=== PATIENT | female | born 1965 | race Two or more races ===

== ENCOUNTER 2017-04-14 14:32 | Inpatient (IN) | payer MEDICAID, OTHER ==
[~2017-04-14] VITALS: Ht 160 cm; Wt 144.5 kg
[2017-04-14] MEDS ORDERED: DEXTROSE 50% SYRINGE 50 ML IV ONE (14:50)
[2017-04-14] MEDS ORDERED: D5W/SOD CHLO 0.9% 1,000 ML IV ONE ×2 (15:00→16:45)
[2017-04-14] MEDS ORDERED: DEXTROSE (50%) 50ML SYRG IV ONE (15:15)
[2017-04-14 15:18] LABS: Basophils # (auto) 0 uL; Basophils % (auto) 0.4 % (0.0-2.0); CONDITION Y; Eosinophils # (auto) 0.1 uL; Eosinophils % (auto) 1.7 % (0.0-7.0); Hemoglobin 9.5 g/dL (12.2-16.2); Lymphocytes # (auto) 0.7 uL; Lymphocytes % (auto) 12.3 % (10.0-50.0); Mean Corpuscular Hemoglobin 31.2 pg (28.0-32.0); Mean Corpuscular Hgb Conc. 34.1 g/dL (32.0-36.0); Mean Corpuscular Volume 91.5 fL (80.0-100.0); Mean Platelet Volume 9.9 fL (7.4-10.4); Monocytes # (auto) 0.2 uL; Monocytes % (auto) 3.7 % (0.0-12.0); Neutrophils # (auto) 4.5 uL; Neutrophils % (auto) 81.9 % (37.0-80.0); Platelet Count (auto) 192 10^3/uL (140-450); Red Cell Distribution Width 13.4 % (11.6-16.0); White Blood Cell 5.5 10^3/uL (4.4-10.8)
[2017-04-14 15:34] LABS: INR 0.98 (0.9-1.15); Partial Thromboplastin Time 27.8 sec (22.64-33.71); Prothrombin Time 10.7 sec (9.37-12.3)
[2017-04-14 15:50] LABS: Albumin 1.9 g/dL (3.4-5.0); Anion Gap 12 (5-15); Aspartate Aminotransferase 16 U/L (15-37); BUN/Creatinine Ratio 6.3; Blood Urea Nitrogen 59 mg/dL (7-18); Calcium 7.1 mg/dL (8.5-10.1); Carbon Dioxide 18 mmol/L (21-32); Chloride 114 mmol/L (98-107); GFR African American 6 mL/min; GFR Non-African American 5 mL/min; Glucose 160 mg/dL (74-106); Magnesium 2.4 mg/dL (1.6-2.6); Potassium 3.8 mmol/L (3.5-5.1); Sodium 144 mmol/L (136-145)
[2017-04-14 15:53] LABS: Alkaline Phosphatase 112 U/L (45-117); Bilirubin, Total 0.2 mg/dL (0.2-1.0); Total Protein 5.5 g/dL (6.4-8.2)
[2017-04-14] MEDS ORDERED: NITROGLYCERIN 0.4 MG SL TAB SL PRN (16:30)
[2017-04-14] MEDS ORDERED: ACETAMINOPHEN 325 MG TAB PO PRN (16:30)
[2017-04-14] MEDS ORDERED: ONDANSETRON HCL 4 MG/2 ML VIAL IV PRN (16:30)
[2017-04-14] MEDS ORDERED: MORPHINE SULF INJ 2 MG/ML SYRINGE 1ML IV PRN ×2 (16:30)
[2017-04-14] MEDS ORDERED: TEMAZEPAM 15 MG CAP PO PRN (16:30)
[2017-04-14] MEDS ORDERED: DOCUSATE SOD 100 MG CAP PO PRN (16:30)
[2017-04-14] MEDS ORDERED: DEXTROSE (50%) 50ML SYRG IV PRN (16:45)
[2017-04-14] MEDS: Boost Glucose Control 8 Ounces PO SCH ×2 (18:35→22:06)
[2017-04-14] MEDS: cloNIDine HCL 0.1 MG TAB PO PRN ×2 (20:11→22:28)
[2017-04-14] MEDS: ATORVASTATIN 20 MG TAB PO SCH (22:28)
[2017-04-14] MEDS: AMOXICILLIN TRIHYDRATE 250 MG CAP PO SCH (22:28)
[2017-04-15] MEDS: cloNIDine HCL 0.1 MG TAB PO PRN ×3 (01:11→06:32)
[2017-04-15 03:56] LABS: Urine Bilirubin Negative (Negative); Urine Blood 1+ /uL (Negative); Urine Color Yellow (Yellow); Urine Glucose 3+ mg/dL (Normal); Urine Ketone Negative (Negative); Urine Mucus FEW (None Seen); Urine Nitrite Negative (Negative); Urine RBC 7 /hpf (0 - 4); Urine Squamous Epithelial Cell FEW /hpf (<5); Urine Urobilinogen Normal (Negative)
[2017-04-15] MEDS: AMOXICILLIN TRIHYDRATE 250 MG CAP PO SCH ×3 (06:00→22:20)
[2017-04-15] MEDS: Boost Glucose Control 8 Ounces PO SCH ×4 (06:16→22:00)
[2017-04-15 07:16] LABS: Basophils # (auto) 0 uL; Basophils % (auto) 0.7 % (0.0-2.0); CONDITION Y; Eosinophils # (auto) 0.2 uL; Eosinophils % (auto) 3.6 % (0.0-7.0); Hematocrit 26.8 % (36.0-46.0); Hemoglobin 8.9 g/dL (12.2-16.2); Lymphocytes # (auto) 1.1 uL; Lymphocytes % (auto) 18.8 % (10.0-50.0); Mean Corpuscular Hemoglobin 30.7 pg (28.0-32.0); Mean Corpuscular Hgb Conc. 33.4 g/dL (32.0-36.0); Mean Corpuscular Volume 91.8 fL (80.0-100.0); Mean Platelet Volume 10.5 fL (7.4-10.4); Monocytes # (auto) 0.3 uL; Monocytes % (auto) 4.6 % (0.0-12.0); Neutrophils # (auto) 4.2 uL; Neutrophils % (auto) 72.3 % (37.0-80.0); Platelet Count (auto) 162 10^3/uL (140-450); Red Cell Distribution Width 13.6 % (11.6-16.0); White Blood Cell 5.8 10^3/uL (4.4-10.8)
[2017-04-15 07:30] LABS: Albumin 1.7 g/dL (3.4-5.0); Calcium 7.2 mg/dL (8.5-10.1); Potassium 5.5 mmol/L (3.5-5.1)
[2017-04-15 07:32] LABS: BUN/Creatinine Ratio 6.4
[2017-04-15 07:34] LABS: Bilirubin, Total 0.2 mg/dL (0.2-1.0); Total Protein 5.1 g/dL (6.4-8.2)
[2017-04-15] MEDS ORDERED: SODIUM BICARBONATE 8.4 % INJ 50ML VIAL IV ONE (10:15)
[2017-04-15] MEDS ORDERED: InsuLIN REG 1unit/0.01ml Soln (100units/ml) IV ONE (10:15)
[2017-04-15] MEDS ORDERED: DEXTROSE (50%) 50ML SYRG IV ONE (10:15)
[2017-04-15] MEDS ORDERED: ALBUTEROL SULF 2.5 MG/0.5ML(0.5%) NEB SOLN NEB ONE (10:15)
[2017-04-15] MEDS: MULTIPLE VITAMIN TAB PO SCH (10:32)
[2017-04-15] MEDS ORDERED: METOPROLOL TARTRATE 50 MG TAB PO ONE (11:00)
[2017-04-15] MEDS ORDERED: NIFEdipine ER 30 MG TAB PO ONE (11:00)
[2017-04-15] MEDS ORDERED: EPOETIN ALFA 10,000 UNIT/1 ML VIAL IV ONE (11:00)
[2017-04-15 16:27] VITALS: BP 141/92
[2017-04-15 17:58] VITALS: BP 118/71
[2017-04-15 20:00] VITALS: BP 122/56
[2017-04-15 21:48] VITALS: BP 122/56
[2017-04-15] MEDS: METOPROLOL TARTRATE 50 MG TAB PO SCH (22:15)
[2017-04-15] MEDS: ATORVASTATIN 20 MG TAB PO SCH (22:20)
[2017-04-16] VITALS (7 sets, daily range): BP systolic 129–164; BP diastolic 61–79
[2017-04-16] MEDS: AMOXICILLIN TRIHYDRATE 250 MG CAP PO SCH ×3 (05:28→22:12)
[2017-04-16] MEDS ORDERED: SODIUM CHL 0.9% 1000 ML BAG XX ONE (06:00)
[2017-04-16 06:16] LABS: Basophils # (auto) 0 uL; Basophils % (auto) 0.7 % (0.0-2.0); CONDITION Y; Eosinophils # (auto) 0.3 uL; Eosinophils % (auto) 4.7 % (0.0-7.0); Hemoglobin 9.2 g/dL (12.2-16.2); Lymphocytes # (auto) 1.6 uL; Lymphocytes % (auto) 23.9 % (10.0-50.0); Mean Corpuscular Hemoglobin 30.9 pg (28.0-32.0); Mean Platelet Volume 10.6 fL (7.4-10.4); Monocytes # (auto) 0.3 uL; Monocytes % (auto) 4.4 % (0.0-12.0); Neutrophils # (auto) 4.4 uL; Neutrophils % (auto) 66.3 % (37.0-80.0); Platelet Count (auto) 201 10^3/uL (140-450); Red Cell Distribution Width 13.4 % (11.6-16.0); White Blood Cell 6.7 10^3/uL (4.4-10.8)
[2017-04-16] MEDS: Boost Glucose Control 8 Ounces PO SCH ×4 (06:29→22:12)
[2017-04-16 06:44] LABS: Albumin 1.8 g/dL (3.4-5.0); BUN/Creatinine Ratio 6.9; Bilirubin, Total 0.2 mg/dL (0.2-1.0); Calcium 7.2 mg/dL (8.5-10.1); Total Protein 5.5 g/dL (6.4-8.2)
[2017-04-16] MEDS ORDERED: EPOETIN ALFA 10,000 UNIT/1 ML VIAL IV ONE (08:00)
[2017-04-16] MEDS: MULTIPLE VITAMIN TAB PO SCH (11:31)
[2017-04-16] MEDS: METOPROLOL TARTRATE 50 MG TAB PO SCH ×2 (11:31→22:13)
[2017-04-16] MEDS: NIFEdipine ER 30 MG TAB PO SCH (11:31)
[2017-04-16] MEDS: CALCIUM ACETATE 667 MG CAP PO SCH ×2 (12:00→18:10)
[2017-04-16] MEDS ORDERED: ceFAZolin 1GM/50ML D5W 50 ML IV ONE (13:25)
[2017-04-16] MEDS ORDERED: ceFAZolin 1GM VL ONE (13:30)
[2017-04-16] MEDS ORDERED: HEPARIN 1,000 UNITS/ml 1ML VIAL ONE (13:30)
[2017-04-16] MEDS ORDERED: HEPARIN SODIUM (PORCINE) 5000 UNITS/ML 1ML VIAL ONE (13:31)
[2017-04-16] MEDS ORDERED: LIDOCAINE 1% HCL (LOCAL ANESTH.) INJ 20ML MDV ONE (13:32)
[2017-04-16] MEDS ORDERED: MIDAZOLAM HCL 1MG/1ML-2 ML VIAL ONE (13:37)
[2017-04-16] MEDS ORDERED: fentaNYL CITRATE 100 MCG/2 ML VL ONE (13:37)
[2017-04-16] MEDS ORDERED: METOCLOPRAMIDE HCL 5MG/ml INJ 2ml VIAL ONE (13:47)
[2017-04-16] MEDS ORDERED: PROPOFOL 10 MG/ML 20 ML IV ONE (14:11)
[2017-04-16] MEDS: HYDROcodone-ACET 5/325MG TAB PO PRN (16:19)
[2017-04-16] MEDS: ATORVASTATIN 20 MG TAB PO SCH (22:12)
[2017-04-17] VITALS (7 sets, daily range): BP systolic 147–171; BP diastolic 66–82
[2017-04-17] MEDS: AMOXICILLIN TRIHYDRATE 250 MG CAP PO SCH ×3 (05:09→21:47)
[2017-04-17] MEDS: Boost Glucose Control 8 Ounces PO SCH ×4 (05:09→21:49)
[2017-04-17 05:49] LABS: Basophils # (auto) 0.1 uL; Basophils % (auto) 0.6 % (0.0-2.0); CONDITION Y; Eosinophils # (auto) 0.2 uL; Eosinophils % (auto) 2.9 % (0.0-7.0); Hematocrit 31.1 % (36.0-46.0); Hemoglobin 10.6 g/dL (12.2-16.2); Lymphocytes # (auto) 1.2 uL; Lymphocytes % (auto) 14.1 % (10.0-50.0); Mean Corpuscular Hemoglobin 30.9 pg (28.0-32.0); Mean Corpuscular Hgb Conc. 33.9 g/dL (32.0-36.0); Mean Platelet Volume 9.4 fL (7.4-10.4); Monocytes # (auto) 0.3 uL; Monocytes % (auto) 3.5 % (0.0-12.0); Neutrophils # (auto) 6.5 uL; Neutrophils % (auto) 78.9 % (37.0-80.0); Platelet Count (auto) 266 10^3/uL (140-450); Red Cell Distribution Width 13.6 % (11.6-16.0); White Blood Cell 8.2 10^3/uL (4.4-10.8)
[2017-04-17 06:09] LABS: BUN/Creatinine Ratio 6.9; Calcium 7.7 mg/dL (8.5-10.1); Potassium 4.8 mmol/L (3.5-5.1)
[2017-04-17] MEDS: CALCIUM ACETATE 667 MG CAP PO SCH ×3 (08:24→16:59)
[2017-04-17] MEDS: MULTIPLE VITAMIN TAB PO SCH (08:24)
[2017-04-17 09:25] LABS: Hepatitis B Surface Antibody Negative
[2017-04-17] MEDS: METOPROLOL TARTRATE 50 MG TAB PO SCH ×2 (10:00→21:49)
[2017-04-17] MEDS ORDERED: EPOETIN ALFA 10,000 UNIT/1 ML VIAL IV ONE ×2 (10:00→10:15)
[2017-04-17] MEDS: NIFEdipine ER 30 MG TAB PO SCH (10:00)
[2017-04-17] MEDS: cloNIDine HCL 0.1 MG TAB PO PRN ×2 (12:29→16:59)
[2017-04-17] MEDS: ATORVASTATIN 20 MG TAB PO SCH (21:48)
[2017-04-18 05:00] VITALS: BP 96/79
[2017-04-18] MEDS: AMOXICILLIN TRIHYDRATE 250 MG CAP PO SCH ×3 (05:22→21:46)
[2017-04-18] MEDS: Boost Glucose Control 8 Ounces PO SCH ×4 (05:23→21:46)
[2017-04-18 05:53] LABS: BUN/Creatinine Ratio 5.8; Calcium 8.1 mg/dL (8.5-10.1); Phosphorus 4.2 mg/dL (2.5-4.90); Potassium 3.8 mmol/L (3.5-5.1)
[2017-04-18 08:00] VITALS: BP 159/85
[2017-04-18] MEDS ORDERED: SODIUM CHL 0.9% 1000 ML BAG XX ONE ×2 (08:00→10:00)
[2017-04-18] MEDS: CALCIUM ACETATE 667 MG CAP PO SCH ×3 (08:20→18:23)
[2017-04-18] MEDS ORDERED: ERGOCALCIFEROL 50,000 UNIT(1.25MG) CAP PO SCH (09:30)
[2017-04-18 09:33] VITALS: BP 159/85
[2017-04-18] MEDS: METOPROLOL TARTRATE 50 MG TAB PO SCH ×2 (09:48→21:47)
[2017-04-18] MEDS: NIFEdipine ER 30 MG TAB PO SCH (09:49)
[2017-04-18] MEDS: MULTIPLE VITAMIN TAB PO SCH (09:49)
[2017-04-18 13:00] VITALS: BP 178/91
[2017-04-18] MEDS: cloNIDine HCL 0.1 MG TAB PO PRN (13:27)
[2017-04-18 17:05] VITALS: BP 133/91
[2017-04-18] MEDS ORDERED: CATHFLO ACTIVASE (ALTEPLASE) 2 MG VIAL IV ONE ×2 (18:00→18:30)
[2017-04-18 21:30] VITALS: BP 144/73
[2017-04-18] MEDS: ATORVASTATIN 20 MG TAB PO SCH (21:46)
[2017-04-19 05:00] VITALS: BP 154/68
[2017-04-19] MEDS: AMOXICILLIN TRIHYDRATE 250 MG CAP PO SCH ×3 (06:24→22:02)
[2017-04-19] MEDS: Boost Glucose Control 8 Ounces PO SCH ×4 (06:25→22:00)
[2017-04-19 08:00] VITALS: BP 130/66
[2017-04-19] MEDS: CALCIUM ACETATE 667 MG CAP PO SCH ×3 (08:06→17:04)
[2017-04-19] MEDS: NIFEdipine ER 30 MG TAB PO SCH (09:08)
[2017-04-19] MEDS: MULTIPLE VITAMIN TAB PO SCH (09:08)
[2017-04-19] MEDS: METOPROLOL TARTRATE 50 MG TAB PO SCH ×2 (09:09→22:00)
[2017-04-19] MEDS: HYDROcodone-ACET 5/325MG TAB PO PRN (09:09)
[2017-04-19 09:42] VITALS: BP 130/66
[2017-04-19 14:19] VITALS: BP 141/77
[2017-04-19 17:29] VITALS: BP 121/61
[2017-04-19 21:30] VITALS: BP 145/68
[2017-04-19] MEDS: ATORVASTATIN 20 MG TAB PO SCH (22:00)
[2017-04-20 05:00] VITALS: BP 143/75
[2017-04-20] MEDS: Boost Glucose Control 8 Ounces PO SCH ×2 (06:00→11:45)
[2017-04-20] MEDS: AMOXICILLIN TRIHYDRATE 250 MG CAP PO SCH ×2 (06:03→14:00)
[2017-04-20] MEDS: CALCIUM ACETATE 667 MG CAP PO SCH ×2 (08:00→11:48)
[2017-04-20 09:00] VITALS: BP 132/71
[2017-04-20 09:35] VITALS: BP 132/71
[2017-04-20] MEDS: NIFEdipine ER 30 MG TAB PO SCH (10:00)
[2017-04-20] MEDS: MULTIPLE VITAMIN TAB PO SCH (10:00)
[2017-04-20] MEDS: METOPROLOL TARTRATE 50 MG TAB PO SCH (10:00)
[2017-04-20 13:18] VITALS: BP 130/74
== END 2017-04-20 15:00 | disposition home or self-care (01) | DRG 420 ==
LOC: ER 14:34 → TELE 14:35 → TELE-E-ADS 04-15 15:40 → TELE-CENTR 04-15 17:42
PROVIDERS: ADMIT Internal Medicine; ATTEND Internal Medicine
PROC: 05H633Z Insertion of Infusion Device into Left Subclavian Vein, Percutaneous Approach (ICD-10-PCS; principal; 2017-04-16 13:45)
PROC: 5A1D60Z (ICD-10-PCS; 2017-04-17)
DX: E11.649 Type 2 diabetes mellitus with hypoglycemia without coma (principal); E43 Unspecified severe protein-calorie malnutrition; G93.41 Metabolic encephalopathy; N17.9 Acute kidney failure, unspecified; I12.0 Hypertensive chronic kidney disease with stage 5 chronic kidney disease or end stage renal disease; E87.2 Acidosis; E11.21 Type 2 diabetes mellitus with diabetic nephropathy; G40.909 Epilepsy, unspecified, not intractable, without status epilepticus; E11.22 Type 2 diabetes mellitus with diabetic chronic kidney disease; E83.51 Hypocalcemia; E87.5 Hyperkalemia; Z83.3 Family history of diabetes mellitus; E78.5 Hyperlipidemia, unspecified; D63.1 Anemia in chronic kidney disease; N18.6 End stage renal disease; Z99.2 Dependence on renal dialysis; Z68.43 Body mass index [BMI] 50.0-59.9, adult
CPT/HCPCS: 36415; 71010; 80048; 80053; 80307; 80320; 81001; 82306; 82962; 83036; 83735; 84100; 84443; 85025; 85610; 85730; 86706; 86803; 87086; 87340; 90935; 93005; 96365; 96366; 96375; 97163; J0690; J0885; J1642; J1815; J2001; J2250; J2704; J7042

== ENCOUNTER 2017-09-29 17:49 | Inpatient (IN) | payer MEDICAID, OTHER ==
[~2017-09-29] VITALS: Ht 160 cm; Wt 56.6 kg
[~2017-09-29 17:49] MED LIST: ATOR1TAB PO; B-CO-5 PO; HYDR-4683 PO; LOSA50TA6 PO
[2017-09-29] MEDS ORDERED: CLINDAMYCIN 600MG IV 50 ML IV ONE (19:45)
[2017-09-29 20:04] LABS: Basophils # (auto) 0 uL; Basophils % (auto) 1.2 % (0.0-2.0); Eosinophils # (auto) 0.1 uL; Hematocrit 33.1 % (36.0-46.0); Hemoglobin 11.4 g/dL (12.2-16.2); Lymphocytes # (auto) 0.8 uL; Lymphocytes % (auto) 25.5 % (10.0-50.0); Mean Corpuscular Hgb Conc. 34.6 g/dL (32.0-36.0); Mean Corpuscular Volume 92.6 fL (80.0-100.0); Monocytes # (auto) 0.2 uL; Monocytes % (auto) 5.4 % (0.0-12.0); Neutrophils # (auto) 2.2 uL; Neutrophils % (auto) 64.9 % (37.0-80.0); Nucleated Red Blood Cells % 0.1 %; Platelet Count (auto) 145 10^3/uL (140-450); Red Blood Cells 3.57 10^6/uL (4.0-5.20); Red Cell Distribution Width 13.2 % (11.8-14.3); White Blood Cell 3.3 10^3/uL (4.4-10.8)
[2017-09-29 20:22] LABS: Albumin 3.4 g/dL (3.4-5.0); BUN/Creatinine Ratio 4.5; Bilirubin, Total 0.4 mg/dL (0.2-1.0); Calcium 7.3 mg/dL (8.5-10.1); Magnesium 2.6 mg/dL (1.6-2.6); Potassium 3.8 mmol/L (3.5-5.1); Total Protein 7.3 g/dL (6.4-8.2)
[2017-09-29] MEDS ORDERED: ONDA-101 PO (21:26)
[2017-09-29] MEDS ORDERED: AMLO5TAB2 PO (21:26)
[2017-09-29] MEDS ORDERED: FERR1TAB17 PO (21:26)
[2017-09-29] MEDS ORDERED: CHOLCAP4 PO (21:26)
[2017-09-29] MEDS ORDERED: CLON0.1T PO (21:26)
[2017-09-29] MEDS ORDERED: cloNIDine HCL 0.1 MG TAB PO ONE (21:30)
[2017-09-29] MEDS ORDERED: DEXTROSE (50%) 50ML SYRG IV PRN (21:30)
[2017-09-29] MEDS ORDERED: TEMAZEPAM 15 MG CAP PO PRN (21:30)
[2017-09-29] MEDS ORDERED: ACETAMINOPHEN 500 MG TAB PO PRN (21:30)
[2017-09-29] MEDS ORDERED: ONDANSETRON HCL 4 MG/2 ML VIAL IV PRN (21:30)
[2017-09-29] MEDS ORDERED: VANCOMYCIN PER PHARMACY 0 MG IV SCH (21:45)
[2017-09-29] MEDS: ACCU-CHEK COMFORT CURVE STRIP VI SCH (22:00)
[2017-09-29 23:00] VITALS: BP 168/96
[2017-09-29] MEDS ORDERED: VANCOMYCIN 500 MG in D5W 5% 100 ML IV ONE (23:00)
[2017-09-29] MEDS: ATORVASTATIN 20 MG TAB PO SCH (23:29)
[2017-09-29] MEDS: amLODIPine BESYLATE 5 MG TAB PO SCH (23:30)
[2017-09-29 23:45] VITALS: BP 168/96
[2017-09-30] VITALS (7 sets, daily range): BP systolic 144–178; BP diastolic 65–102
[2017-09-30] MEDS: InsuLIN REG 1unit/0.01ml Soln (100units/ml) SC SCH ×5 (00:05→22:02)
[2017-09-30] MEDS: ACCU-CHEK COMFORT CURVE STRIP VI SCH ×4 (06:16→21:58)
[2017-09-30 08:18] LABS: Basophils # (auto) 0 uL; Basophils % (auto) 0.8 % (0.0-2.0); Eosinophils # (auto) 0.1 uL; Eosinophils % (auto) 1.9 % (0.0-7.0); Hematocrit 32.9 % (36.0-46.0); Hemoglobin 11.3 g/dL (12.2-16.2); Lymphocytes # (auto) 0.9 uL; Lymphocytes % (auto) 16.5 % (10.0-50.0); Mean Corpuscular Hemoglobin 31.3 pg (28.0-32.0); Mean Corpuscular Hgb Conc. 34.2 g/dL (32.0-36.0); Mean Corpuscular Volume 91.7 fL (80.0-100.0); Monocytes # (auto) 0.3 uL; Monocytes % (auto) 5.4 % (0.0-12.0); Neutrophils # (auto) 4.2 uL; Neutrophils % (auto) 75.4 % (37.0-80.0); Platelet Count (auto) 132 10^3/uL (140-450); Red Blood Cells 3.59 10^6/uL (4.0-5.20); Red Cell Distribution Width 12.8 % (11.8-14.3); White Blood Cell 5.6 10^3/uL (4.4-10.8)
[2017-09-30 08:35] LABS: BUN/Creatinine Ratio 4.9; Calcium 7.8 mg/dL (8.5-10.1); Potassium 4.2 mmol/L (3.5-5.1)
[2017-09-30] MEDS ORDERED: VANCOMYCIN 1GM/250ML 250 ML IV ONE (10:00)
[2017-09-30] MEDS: ASPirin 81 mg TAB PO SCH (10:34)
[2017-09-30] MEDS: LOSARTAN POTASSIUM 50 MG TAB PO SCH (10:36)
[2017-09-30] MEDS: cloNIDine HCL 0.1 MG TAB PO PRN (18:57)
[2017-09-30] MEDS: ATORVASTATIN 20 MG TAB PO SCH (21:51)
[2017-09-30] MEDS: amLODIPine BESYLATE 5 MG TAB PO SCH (21:53)
[2017-10-01] VITALS (7 sets, daily range): BP systolic 109–180; BP diastolic 53–86
[2017-10-01] MEDS: ACCU-CHEK COMFORT CURVE STRIP VI SCH ×4 (06:12→22:20)
[2017-10-01] MEDS: InsuLIN REG 1unit/0.01ml Soln (100units/ml) SC SCH ×4 (06:13→22:20)
[2017-10-01 06:59] LABS: Calcium 7.8 mg/dL (8.5-10.1); Potassium 5.1 mmol/L (3.5-5.1)
[2017-10-01] MEDS: ASPirin 81 mg TAB PO SCH (09:16)
[2017-10-01] MEDS: LOSARTAN POTASSIUM 50 MG TAB PO SCH (11:23)
[2017-10-01] MEDS ORDERED: cefTRIAXone 1GM/10ml IVPUSH 10 ML IV ONE (13:15)
[2017-10-01] MEDS: ATORVASTATIN 20 MG TAB PO SCH (21:58)
[2017-10-01] MEDS: amLODIPine BESYLATE 5 MG TAB PO SCH (21:59)
[2017-10-01] MEDS: cloNIDine HCL 0.1 MG TAB PO PRN (21:59)
[2017-10-02] VITALS (7 sets, daily range): BP systolic 109–151; BP diastolic 59–79
[2017-10-02] MEDS: InsuLIN REG 1unit/0.01ml Soln (100units/ml) SC SCH ×4 (06:14→22:12)
[2017-10-02] MEDS: ACCU-CHEK COMFORT CURVE STRIP VI SCH ×4 (06:14→22:12)
[2017-10-02 07:20] LABS: Albumin 3.3 g/dL (3.4-5.0); BUN/Creatinine Ratio 7.2; Bilirubin, Total 0.4 mg/dL (0.2-1.0); Calcium 8.3 mg/dL (8.5-10.1)
[2017-10-02 07:32] LABS: Basophils # (auto) 0.1 uL; Basophils % (auto) 1.1 % (0.0-2.0); Eosinophils # (auto) 0.1 uL; Eosinophils % (auto) 2.9 % (0.0-7.0); Hematocrit 30.7 % (36.0-46.0); Hemoglobin 10.4 g/dL (12.2-16.2); Lymphocytes # (auto) 1.6 uL; Lymphocytes % (auto) 34.3 % (10.0-50.0); Mean Corpuscular Hemoglobin 31.3 pg (28.0-32.0); Mean Corpuscular Hgb Conc. 33.9 g/dL (32.0-36.0); Mean Corpuscular Volume 92.4 fL (80.0-100.0); Monocytes # (auto) 0.4 uL; Monocytes % (auto) 7.6 % (0.0-12.0); Neutrophils # (auto) 2.6 uL; Neutrophils % (auto) 54.1 % (37.0-80.0); Nucleated Red Blood Cells % 0.5 %; Platelet Count (auto) 158 10^3/uL (140-450); Red Blood Cells 3.32 10^6/uL (4.0-5.20); Red Cell Distribution Width 12.9 % (11.8-14.3); White Blood Cell 4.7 10^3/uL (4.4-10.8)
[2017-10-02] MEDS ORDERED: cefTRIAXone 1GM/10ml IVPUSH 10 ML IV SCH (09:00)
[2017-10-02] MEDS: LOSARTAN POTASSIUM 50 MG TAB PO SCH (09:01)
[2017-10-02] MEDS: ASPirin 81 mg TAB PO SCH (09:26)
[2017-10-02] MEDS: B-COMPLEX W/ C & FOLIC ACID(NEPHROVITE TAB) PO SCH (09:31)
[2017-10-02] MEDS: ASCORBIC ACID 500 MG TAB PO SCH ×2 (09:32→22:11)
[2017-10-02 10:07] LABS: INR 0.98 (0.9-1.15); Partial Thromboplastin Time 26.4 sec (22.64-33.71); Prothrombin Time 10.7 sec (9.37-12.3)
[2017-10-02 17:39] LABS: Urine Bacteria NONE SEEN /hpf (None Seen); Urine Blood TRACE /uL (Negative); Urine Mucus FEW (None Seen); Urine Specific Gravity 1.015 (1.001-1.035); Urine WBC 4 /hpf (0 - 5)
[2017-10-02] MEDS ORDERED: SODIUM POLYSTYRENE SULF 15GM/60ML SUSP PO ONE (18:15)
[2017-10-02] MEDS: amLODIPine BESYLATE 5 MG TAB PO SCH (22:11)
[2017-10-02] MEDS: ATORVASTATIN 20 MG TAB PO SCH (22:11)
[2017-10-03] MEDS ORDERED: KETOROLAC TROMETH 30 MG/ML 1ML VIAL IV ONE ×2 (03:15→07:45)
[2017-10-03 05:00] VITALS: BP 98/48
[2017-10-03] MEDS: ACCU-CHEK COMFORT CURVE STRIP VI SCH ×4 (06:41→22:21)
[2017-10-03] MEDS: InsuLIN REG 1unit/0.01ml Soln (100units/ml) SC SCH ×4 (06:41→22:00)
[2017-10-03] MEDS ORDERED: ceFAZolin 1GM/50ML 50 ML IV ONE (06:47)
[2017-10-03] MEDS ORDERED: LIDOCAINE 1% HCL (LOCAL ANESTH.) INJ 20ML MDV ONE (06:52)
[2017-10-03] MEDS ORDERED: BUPIVACAINE 0.25% INJ 50ML VIAL ONE (06:52)
[2017-10-03] MEDS ORDERED: fentaNYL CITRATE 100 MCG/2 ML VL ONE (07:12)
[2017-10-03] MEDS ORDERED: MIDAZOLAM HCL 1MG/1ML-2 ML VIAL ONE (07:13)
[2017-10-03] MEDS ORDERED: MEPERIDINE HCL (50 MG/ML) 1 ML VIAL ONE (07:13)
[2017-10-03] MEDS ORDERED: PROPOFOL 10 MG/ML 20 ML IV ONE (07:28)
[2017-10-03] MEDS ORDERED: DEXAMETHASONE SOD PHOS 10MG/1ML VIAL INJ ONE (07:28)
[2017-10-03 07:45] LABS: BUN/Creatinine Ratio 8.1; Calcium 7.8 mg/dL (8.5-10.1)
[2017-10-03] MEDS ORDERED: LABETALOL HCL 5 MG/ML 4ML SYRINGE IV PRN (07:45)
[2017-10-03] MEDS ORDERED: HYDROmorphone HCL 2 MG/ML VL IV PRN (07:45)
[2017-10-03] MEDS ORDERED: ONDANSETRON HCL 4 MG/2 ML VIAL IV ONE (07:45)
[2017-10-03] MEDS ORDERED: MORPHINE SULFATE 4 MG/ML SYR/VIAL IV PRN (07:45)
[2017-10-03] MEDS ORDERED: ACCU-CHEK COMFORT CURVE STRIP VI ONE (07:45)
[2017-10-03] MEDS ORDERED: MIDAZOLAM HCL 1MG/1ML-2 ML VIAL IV PRN (07:45)
[2017-10-03] MEDS ORDERED: ePHEDrine SULFATE 50 MG/ML AMP IV PRN (07:45)
[2017-10-03 07:50] LABS: Potassium 5.9 mmol/L (3.5-5.1)
[2017-10-03] MEDS ORDERED: MORPHINE SULFATE 4 MG/ML SYR/VIAL IV ONE (08:00)
[2017-10-03] MEDS ORDERED: ceFAZolin 1GM/50ML 50 ML IV SCH ×2 (08:15→13:00)
[2017-10-03 09:00] VITALS: BP 117/62
[2017-10-03] MEDS: LACTATED RINGER'S 1,000 ML IV SCH (11:00)
[2017-10-03] MEDS: ASPirin 81 mg TAB PO SCH (12:17)
[2017-10-03] MEDS: B-COMPLEX W/ C & FOLIC ACID(NEPHROVITE TAB) PO SCH (12:17)
[2017-10-03] MEDS: ASCORBIC ACID 500 MG TAB PO SCH ×2 (12:17→22:12)
[2017-10-03 13:00] VITALS: BP 139/60
[2017-10-03] MEDS: FLORASTOR (S. BOULARDII) 250 MG CAP PO SCH (15:26)
[2017-10-03] MEDS: CLINDAMYCIN 300MG IV 50 ML IV SCH ×2 (16:30→22:11)
[2017-10-03 17:00] VITALS: BP 140/61
[2017-10-03] MEDS ORDERED: VANCOMYCIN 500 MG in D5W 5% 100 ML IV ONE (17:00)
[2017-10-03] MEDS: LOSARTAN POTASSIUM 50 MG TAB PO SCH (18:04)
[2017-10-03 20:00] VITALS: BP 143/84
[2017-10-03] MEDS: ceFAZolin 1GM/50ML 50 ML IV SCH (21:22)
[2017-10-03] MEDS: ATORVASTATIN 20 MG TAB PO SCH (22:11)
[2017-10-03] MEDS: amLODIPine BESYLATE 5 MG TAB PO SCH (22:12)
[2017-10-03 22:36] VITALS: BP 143/84
[2017-10-03] MEDS: PROMETHAZINE HCL 25 MG/ML 1ML IV PRN (22:54)
[2017-10-03] MEDS: HYDROcodone-ACET 5/325MG TAB PO PRN (23:50)
[2017-10-04] MEDS: LACTATED RINGER'S 1,000 ML IV SCH ×2 (00:41→18:08)
[2017-10-04] MEDS: ceFAZolin 1GM/50ML 50 ML IV SCH (02:58)
[2017-10-04 05:17] VITALS: BP 140/75
[2017-10-04 05:54] LABS: Basophils # (auto) 0 uL; Basophils % (auto) 0.3 % (0.0-2.0); Eosinophils # (auto) 0 uL; Hematocrit 32.8 % (36.0-46.0); Lymphocytes # (auto) 0.5 uL; Lymphocytes % (auto) 11.6 % (10.0-50.0); Mean Corpuscular Hemoglobin 30.9 pg (28.0-32.0); Mean Corpuscular Hgb Conc. 33.5 g/dL (32.0-36.0); Mean Corpuscular Volume 92.2 fL (80.0-100.0); Monocytes # (auto) 0.3 uL; Monocytes % (auto) 8.2 % (0.0-12.0); Neutrophils # (auto) 3.2 uL; Neutrophils % (auto) 79.9 % (37.0-80.0); Platelet Count (auto) 139 10^3/uL (140-450); Red Blood Cells 3.56 10^6/uL (4.0-5.20); White Blood Cell 4.1 10^3/uL (4.4-10.8)
[2017-10-04] MEDS: CLINDAMYCIN 300MG IV 50 ML IV SCH ×3 (06:20→21:12)
[2017-10-04] MEDS: PROMETHAZINE HCL 25 MG/ML 1ML IV PRN (06:20)
[2017-10-04 06:25] LABS: BUN/Creatinine Ratio 7.5; Calcium 8.6 mg/dL (8.5-10.1); Potassium 4.4 mmol/L (3.5-5.1)
[2017-10-04] MEDS: ACCU-CHEK COMFORT CURVE STRIP VI SCH ×4 (06:50→21:33)
[2017-10-04] MEDS: InsuLIN REG 1unit/0.01ml Soln (100units/ml) SC SCH ×4 (06:50→21:33)
[2017-10-04 09:00] VITALS: BP 132/85
[2017-10-04] MEDS: B-COMPLEX W/ C & FOLIC ACID(NEPHROVITE TAB) PO SCH (10:19)
[2017-10-04] MEDS: FLORASTOR (S. BOULARDII) 250 MG CAP PO SCH (10:19)
[2017-10-04] MEDS: ASCORBIC ACID 500 MG TAB PO SCH ×2 (10:20→21:12)
[2017-10-04] MEDS: LOSARTAN POTASSIUM 50 MG TAB PO SCH (10:20)
[2017-10-04] MEDS: ASPirin 81 mg TAB PO SCH (10:20)
[2017-10-04] MEDS: HYDROcodone-ACET 5/325MG TAB PO PRN (10:42)
[2017-10-04 13:00] VITALS: BP 157/71
[2017-10-04 16:47] VITALS: BP 144/72
[2017-10-04] MEDS ORDERED: PANTOPRAZOLE 40 MG TAB PO ONE (18:15)
[2017-10-04] MEDS: NEOMYCIN-BACITRACIN-POLYM UNITDOSE PKG TOP OINT TOP SCH (18:46)
[2017-10-04 20:00] VITALS: BP 145/76
[2017-10-04] MEDS: ATORVASTATIN 20 MG TAB PO SCH (21:12)
[2017-10-04] MEDS: amLODIPine BESYLATE 5 MG TAB PO SCH (21:14)
[2017-10-04 22:28] VITALS: BP 145/76
[2017-10-04] MEDS: LORazepam 0.5 MG TAB PO PRN (22:37)
[2017-10-05 05:24] VITALS: BP 143/71
[2017-10-05] MEDS: InsuLIN REG 1unit/0.01ml Soln (100units/ml) SC SCH ×4 (06:13→22:00)
[2017-10-05] MEDS: ACCU-CHEK COMFORT CURVE STRIP VI SCH ×4 (06:13→22:15)
[2017-10-05] MEDS: CLINDAMYCIN 300MG IV 50 ML IV SCH ×3 (06:13→21:14)
[2017-10-05] MEDS: NEOMYCIN-BACITRACIN-POLYM UNITDOSE PKG TOP OINT TOP SCH ×2 (07:30→12:50)
[2017-10-05 09:00] VITALS: BP 159/71
[2017-10-05] MEDS: FLORASTOR (S. BOULARDII) 250 MG CAP PO SCH (10:02)
[2017-10-05] MEDS: ASPirin 81 mg TAB PO SCH (10:02)
[2017-10-05] MEDS: B-COMPLEX W/ C & FOLIC ACID(NEPHROVITE TAB) PO SCH (10:02)
[2017-10-05] MEDS: ASCORBIC ACID 500 MG TAB PO SCH ×2 (10:03→21:15)
[2017-10-05] MEDS: PANTOPRAZOLE 40 MG TAB PO SCH (10:03)
[2017-10-05] MEDS: LOSARTAN POTASSIUM 50 MG TAB PO SCH (10:04)
[2017-10-05] MEDS: LACTATED RINGER'S 1,000 ML IV SCH (10:07)
[2017-10-05] MEDS ORDERED: LORazepam 2MG/ML-1ML VIAL IM ONE (10:15)
[2017-10-05] MEDS ORDERED: LORazepam 2MG/ML-1ML VIAL IV ONE (10:30)
[2017-10-05 12:00] VITALS: BP 168/81
[2017-10-05 16:00] VITALS: BP 135/64
[2017-10-05 20:00] VITALS: BP 160/83
[2017-10-05] MEDS: ATORVASTATIN 20 MG TAB PO SCH (21:14)
[2017-10-05] MEDS: PROMETHAZINE HCL 25 MG/ML 1ML IV PRN (21:14)
[2017-10-05] MEDS: amLODIPine BESYLATE 5 MG TAB PO SCH (21:15)
[2017-10-05 22:00] VITALS: BP 160/83
[2017-10-06] MEDS: LACTATED RINGER'S 1,000 ML IV SCH (02:41)
[2017-10-06 05:38] LABS: Basophils # (auto) 0 uL; Basophils % (auto) 0.5 % (0.0-2.0); Eosinophils # (auto) 0 uL; Eosinophils % (auto) 0.2 % (0.0-7.0); Hematocrit 26.7 % (36.0-46.0); Hemoglobin 9.1 g/dL (12.2-16.2); Lymphocytes # (auto) 0.8 uL; Lymphocytes % (auto) 17.8 % (10.0-50.0); Mean Corpuscular Hemoglobin 31.5 pg (28.0-32.0); Mean Corpuscular Hgb Conc. 34.1 g/dL (32.0-36.0); Mean Corpuscular Volume 92.5 fL (80.0-100.0); Monocytes # (auto) 0.4 uL; Monocytes % (auto) 9.7 % (0.0-12.0); Neutrophils # (auto) 3.3 uL; Neutrophils % (auto) 71.8 % (37.0-80.0); Platelet Count (auto) 117 10^3/uL (140-450); Red Blood Cells 2.89 10^6/uL (4.0-5.20); Red Cell Distribution Width 12.8 % (11.8-14.3); White Blood Cell 4.6 10^3/uL (4.4-10.8)
[2017-10-06] MEDS: CLINDAMYCIN 300MG IV 50 ML IV SCH ×2 (06:00→14:00)
[2017-10-06] MEDS: ACCU-CHEK COMFORT CURVE STRIP VI SCH ×3 (06:00→17:00)
[2017-10-06] MEDS: InsuLIN REG 1unit/0.01ml Soln (100units/ml) SC SCH ×3 (06:00→17:00)
[2017-10-06 06:01] VITALS: BP 122/77
[2017-10-06] MEDS ORDERED: SODIUM CHL 0.9% 1000 ML BAG XX ONE (10:30)
[2017-10-06] MEDS ORDERED: EPOETIN ALFA 10,000 UNIT/1 ML VIAL IV ONE (10:45)
[2017-10-06] MEDS: LORazepam 0.5 MG TAB PO PRN (13:21)
[2017-10-06] MEDS: PROMETHAZINE HCL 25 MG/ML 1ML IV PRN (13:23)
[2017-10-06] MEDS ORDERED: SACC250C PO (13:35)
[2017-10-06] MEDS ORDERED: CLIN1CAP4 PO (13:35)
[2017-10-06] MEDS: ASCORBIC ACID 500 MG TAB PO SCH (16:32)
[2017-10-06] MEDS: B-COMPLEX W/ C & FOLIC ACID(NEPHROVITE TAB) PO SCH (16:32)
[2017-10-06] MEDS: ASPirin 81 mg TAB PO SCH (16:32)
[2017-10-06] MEDS: FLORASTOR (S. BOULARDII) 250 MG CAP PO SCH (16:32)
[2017-10-06] MEDS: PANTOPRAZOLE 40 MG TAB PO SCH (16:32)
[2017-10-06] MEDS: cloNIDine HCL 0.1 MG TAB PO PRN (16:33)
[2017-10-06] MEDS: NEOMYCIN-BACITRACIN-POLYM UNITDOSE PKG TOP OINT TOP SCH (16:33)
== END 2017-10-06 17:48 | disposition home or self-care (01) | DRG 255 ==
LOC: ER 17:49 → OVERFLOW 17:50 → WEST WING 22:38
PROVIDERS: ADMIT Nurse Practitioner Family; ATTEND Internal Medicine
PROC: 0Y6S0Z3 Detachment at Left 2nd Toe, Low, Open Approach (ICD-10-PCS; principal; 2017-09-29)
PROC: 0Y6U0Z1 Detachment at Left 3rd Toe, High, Open Approach (ICD-10-PCS; 2017-09-29)
PROC: 5A1D70Z Performance of Urinary Filtration, Intermittent, Less than 6 Hours Per Day (ICD-10-PCS; 2017-10-01)
PROC: 5A1D70Z Performance of Urinary Filtration, Intermittent, Less than 6 Hours Per Day (ICD-10-PCS; 2017-10-03)
PROC: 5A1D70Z Performance of Urinary Filtration, Intermittent, Less than 6 Hours Per Day (ICD-10-PCS; 2017-10-06)
DX: E11.52 Type 2 diabetes mellitus with diabetic peripheral angiopathy with gangrene (principal); N18.6 End stage renal disease; I96 Gangrene, not elsewhere classified; E11.22 Type 2 diabetes mellitus with diabetic chronic kidney disease; E11.40 Type 2 diabetes mellitus with diabetic neuropathy, unspecified; I12.0 Hypertensive chronic kidney disease with stage 5 chronic kidney disease or end stage renal disease; N25.81 Secondary hyperparathyroidism of renal origin; D63.1 Anemia in chronic kidney disease; E11.65 Type 2 diabetes mellitus with hyperglycemia; I25.10 Atherosclerotic heart disease of native coronary artery without angina pectoris; E78.5 Hyperlipidemia, unspecified; E87.5 Hyperkalemia; H54.8 Legal blindness, as defined in USA; K21.9 Gastro-esophageal reflux disease without esophagitis; H26.9 Unspecified cataract; Z82.49 Family history of ischemic heart disease and other diseases of the circulatory system; Z79.4 Long term (current) use of insulin; Z82.1 Family history of blindness and visual loss; Z99.2 Dependence on renal dialysis; Z83.3 Family history of diabetes mellitus; Z86.73 Personal history of transient ischemic attack (TIA), and cerebral infarction without residual deficits; Z79.82 Long term (current) use of aspirin
CPT/HCPCS: 36415; 70450; 71045; 73620; 80048; 80053; 80061; 80202; 81001; 82962; 83036; 83735; 84132; 85025; 85610; 85652; 85730; 86850; 86900; 86901; 90935; 93926; 94761; 96374; J0690; J0885; J1100; J1642; J1815; J1885; J2001; J2250; J2405; J2704; J3490; J7060

== ENCOUNTER 2017-10-09 04:10 | Inpatient (IN) | payer OTHER ==
[~2017-10-09] VITALS: Ht 160 cm; Wt 53.7 kg
[~2017-10-09 04:10] MED LIST changes: +AMLO5TAB2 PO; +CHOLCAP4 PO; +CLIN1CAP4 PO; +CLON0.1T PO; +FERR1TAB17 PO; -HYDR-4683 PO; +ONDA-101 PO; +SACC250C PO
[2017-10-09 05:29] LABS: Basophils # (auto) 0 uL; Basophils % (auto) 0.7 % (0.0-2.0); Eosinophils # (auto) 0 uL; Eosinophils % (auto) 0.3 % (0.0-7.0); Hematocrit 33.2 % (36.0-46.0); Hemoglobin 11.2 g/dL (12.2-16.2); Lymphocytes % (auto) 15.7 % (10.0-50.0); Mean Corpuscular Hemoglobin 30.8 pg (28.0-32.0); Mean Corpuscular Hgb Conc. 33.7 g/dL (32.0-36.0); Mean Corpuscular Volume 91.3 fL (80.0-100.0); Monocytes # (auto) 0.5 uL; Monocytes % (auto) 7.9 % (0.0-12.0); Neutrophils # (auto) 4.6 uL; Neutrophils % (auto) 75.4 % (37.0-80.0); Platelet Count (auto) 191 10^3/uL (140-450); Red Blood Cells 3.63 10^6/uL (4.0-5.20); Red Cell Distribution Width 12.9 % (11.8-14.3); White Blood Cell 6.1 10^3/uL (4.4-10.8)
[2017-10-09] MEDS ORDERED: LORazepam 2MG/ML-1ML VIAL ONE (05:30)
[2017-10-09 05:43] LABS: INR 1.03 (0.9-1.15); Partial Thromboplastin Time 27.1 sec (22.64-33.71); Prothrombin Time 11.2 sec (9.37-12.3)
[2017-10-09 05:44] LABS: Alanine Aminotransferase < 6 U/L (13-56); Albumin 3.6 g/dL (3.4-5.0); Alkaline Phosphatase 119 U/L (45-117); Amylase 56 U/L (25-115); Anion Gap 10 (5-15); Aspartate Aminotransferase 20 U/L (15-37); BUN/Creatinine Ratio 2.6; Bilirubin, Total 0.5 mg/dL (0.2-1.0); Blood Urea Nitrogen 15 mg/dL (7-18); Calcium 7.8 mg/dL (8.5-10.1); Carbon Dioxide 31 mmol/L (21-32); Chloride 99 mmol/L (98-107); GFR African American 10 mL/min; GFR Non-African American 8 mL/min; Glucose 89 mg/dL (74-106); Lipase 92 U/L (73-393); Magnesium 2.4 mg/dL (1.6-2.6); Potassium 3.7 mmol/L (3.5-5.1); Sodium 140 mmol/L (136-145); Total Protein 7.8 g/dL (6.4-8.2)
[2017-10-09] MEDS ORDERED: LORazepam 2MG/ML-1ML VIAL IV ONE (05:45)
[2017-10-09] MEDS ORDERED: ACETTAB85 PO (08:24)
[2017-10-09] MEDS ORDERED: cloNIDine HCL 0.1 MG TAB PO ONE (08:45)
[2017-10-09] MEDS ORDERED: DEXTROSE (50%) 50ML SYRG IV PRN (10:15)
[2017-10-09] MEDS ORDERED: PROMETHAZINE HCL 25 MG/ML 1ML IV PRN (10:15)
[2017-10-09] MEDS ORDERED: ACETAMINOPHEN 500 MG TAB PO PRN (10:15)
[2017-10-09] MEDS ORDERED: LORazepam 0.5 MG TAB PO PRN (10:15)
[2017-10-09] MEDS ORDERED: TEMAZEPAM 15 MG CAP PO PRN (10:15)
[2017-10-09] MEDS ORDERED: LACTULOSE 20Gm/30ML SOLN PO PRN (10:15)
[2017-10-09] MEDS ORDERED: NITROGLYCERIN 0.4 MG SL TAB SL PRN (10:15)
[2017-10-09] MEDS ORDERED: HYDROcodone-ACET 5/325MG TAB PO PRN (10:15)
[2017-10-09] MEDS ORDERED: MORPHINE SULFATE 4 MG/ML SYR/VIAL IV PRN ×2 (10:15)
[2017-10-09] MEDS ORDERED: amLODIPine BESYLATE 5 MG TAB PO ONE (10:30)
[2017-10-09] MEDS ORDERED: LOSARTAN POTASSIUM 50 MG TAB PO ONE (10:30)
[2017-10-09] MEDS ORDERED: cefTRIAXone 1GM/10ml IVPUSH 10 ML IV ONE (10:45)
[2017-10-09] MEDS ORDERED: PANTOPRAZOLE 40 MG TAB PO ONE (10:45)
[2017-10-09] MEDS ORDERED: ENOXAPARIN SOD 30 MG/0.3 ML SYRINGE SC ONE (10:45)
[2017-10-09] MEDS: ACCU-CHEK COMFORT CURVE STRIP VI SCH ×3 (11:30→20:44)
[2017-10-09] MEDS: InsuLIN REG 1unit/0.01ml Soln (100units/ml) SC SCH ×3 (12:06→20:44)
[2017-10-09] MEDS: SODIUM CHLOR 0.9% PF (SALINE LOCK) 10ML VIAL IV SCH ×2 (14:48→20:44)
[2017-10-09] MEDS: CLINDAMYCIN 600MG IV 50 ML IV SCH ×2 (14:48→20:47)
[2017-10-09 15:08] VITALS: BP 120/77
[2017-10-09 15:13] VITALS: BP 120/77
[2017-10-09 22:00] VITALS: BP 135/68
[2017-10-10 05:00] VITALS: BP 120/60
[2017-10-10] MEDS: CLINDAMYCIN 600MG IV 50 ML IV SCH ×2 (06:01→14:28)
[2017-10-10] MEDS: SODIUM CHLOR 0.9% PF (SALINE LOCK) 10ML VIAL IV SCH ×2 (06:01→14:29)
[2017-10-10] MEDS: InsuLIN REG 1unit/0.01ml Soln (100units/ml) SC SCH ×2 (06:08→11:30)
[2017-10-10] MEDS: ACCU-CHEK COMFORT CURVE STRIP VI SCH ×2 (06:08→11:30)
[2017-10-10 09:00] VITALS: BP 136/64
[2017-10-10] MEDS ORDERED: cefTRIAXone 1GM/10ml IVPUSH 10 ML IV SCH (09:00)
[2017-10-10] MEDS ORDERED: LOSARTAN POTASSIUM 50 MG TAB PO SCH (10:00)
[2017-10-10] MEDS ORDERED: PANTOPRAZOLE 40 MG TAB PO SCH (10:00)
[2017-10-10] MEDS ORDERED: amLODIPine BESYLATE 5 MG TAB PO SCH ×2 (10:00)
[2017-10-10] MEDS ORDERED: ENOXAPARIN SOD 30 MG/0.3 ML SYRINGE SC SCH (10:00)
[2017-10-10 13:00] VITALS: BP 138/64
[2017-10-10] MEDS ORDERED: SODIUM CHL 0.9% 1000 ML BAG XX ONE (13:30)
[2017-10-10 15:48] VITALS: BP 136/64
[2017-10-10 16:39] VITALS: BP 132/70
== END 2017-10-10 17:00 | disposition home or self-care (01) | DRG 70 ==
LOC: EDBD 04:10 → ER 04:10 → TELE 04:11 → TELE-WESTW 14:22
PROVIDERS: ADMIT Internal Medicine; ATTEND Internal Medicine
PROC: 5A1D70Z Performance of Urinary Filtration, Intermittent, Less than 6 Hours Per Day (ICD-10-PCS; principal; 2017-10-10)
DX: G93.41 Metabolic encephalopathy (principal); N18.6 End stage renal disease; I96 Gangrene, not elsewhere classified; E11.22 Type 2 diabetes mellitus with diabetic chronic kidney disease; I12.0 Hypertensive chronic kidney disease with stage 5 chronic kidney disease or end stage renal disease; K31.84 Gastroparesis; E11.43 Type 2 diabetes mellitus with diabetic autonomic (poly)neuropathy; E11.52 Type 2 diabetes mellitus with diabetic peripheral angiopathy with gangrene; L03.032 Cellulitis of left toe; D64.9 Anemia, unspecified; E78.5 Hyperlipidemia, unspecified; H54.7 Unspecified visual loss; K21.9 Gastro-esophageal reflux disease without esophagitis; K59.00 Constipation, unspecified; F32.9 Major depressive disorder, single episode, unspecified; F41.9 Anxiety disorder, unspecified; G47.00 Insomnia, unspecified; K57.30 Diverticulosis of large intestine without perforation or abscess without bleeding; K44.9 Diaphragmatic hernia without obstruction or gangrene; F29 Unspecified psychosis not due to a substance or known physiological condition; Z99.2 Dependence on renal dialysis; Z82.49 Family history of ischemic heart disease and other diseases of the circulatory system; Z83.3 Family history of diabetes mellitus; Z90.49 Acquired absence of other specified parts of digestive tract; Z79.899 Other long term (current) drug therapy; Z89.422 Acquired absence of other left toe(s)
CPT/HCPCS: 36415; 70450; 71045; 74176; 80053; 82140; 82150; 82962; 83036; 83690; 83735; 84484; 85025; 85610; 85652; 85730; 87040; 87081; 90935; 93005; 95819; 96374; 96375; J3490